=== PATIENT | male | born 1945 | race Caucasian/White ===

== ENCOUNTER → 2017-10-14 | Outpatient (CLI) | payer BC ==
--- NOTE | 2017-09-25 13:39 | MH ---
cc: [facility]List DATE OF ADMISSION: 10/14/2017 ADMISSION DIAGNOSIS Cloudy posterior capsule right eye. HISTORY OF PRESENT ILLNESS This 72-year-old white male is coming through [facility] for the purpose of a YAG laser posterior capsulotomy of the right eye. He is status post cataract surgery with intraocular lens implants in both eyes and has been doing well postoperatively but now notices a decrease in visual acuity and was found to have a cloudy posterior capsule in both eyes and elected to have a YAG laser posterior capsulotomy on the right eye at this time. 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 SURGICAL HISTORY 1. Includes the above-mentioned bilateral cataract surgeries. 2. He has had two ear surgeries in 1965. 3. Appendectomy in 1973. 4. Gallbladder surgery in 1999. DAILY MEDICATIONS 1. Aspirin 325 mg a day. 2. Ibuprofen p.r.n. 3. Multivitamins. ALLERGIES He has no known allergies. SOCIAL HISTORY Noncontributory. FAMILY HISTORY Ps positive for father with cataract. REVIEW OF SYSTEMS Noncontributory. PHYSICAL EXAMINATION On ocular exam the patient's best corrected visual acuity is 20/40 in each eye. Visual silva are full to confrontation testing. Extraocular muscle exam reveals full versions with orthophoria in the distance and exophoria at near. Pupils are 3 mm equal, round, and reactive to light without afferent defect. Anterior segment examination reveals a posterior chamber intraocular lens in place bilaterally with a cloudy posterior capsule in each eye. Intraocular pressure is 17 in each eye by applanation tonometry. Dilated fundus exam revealed sharp disks with cup-to-disk ratio of 0.3 bilaterally. There are drusen and retinal pigment epithelial changes in the macula of each eye. A posterior vitreous detachment is present bilaterally. There is cobblestone peripheral retinal degeneration inferiorly in the left eye. IMPRESSION 1. Cloudy posterior capsule both eyes. 2. Post posterior vitreous detachment both eyes. 3. Pseudophakia both eyes. 4. Early macular degeneration dry form both eyes. 5. Cobblestone peripheral retinal degeneration left eye. PLAN The plan is for YAG laser posterior capsulotomy of the right eye through [facility]. MD KATIE Hairston/SSB /1:08 PM /1:29 PM
[~2017-10-14] MED LIST: ASPI325T PO; FLUOROMETHOLONE 0.25% OPHT SUSP 5 ML BTL ONE; MOTR200T PO; PHENYLEPHRINE HCL 2.5% OPTH SOLN 2 ML BTL ONE; PROPARACAINE HCL 0.5% OPHT SOLN 15 ML BTL ONE; TAB-TAB PO; TROPICAMIDE 1% OPHT SOLN 15 ML BTL ONE
--- NOTE | 2017-10-14 12:38 | MP ---
cc: XIAO VIERA DATE OF SURGERY: October 14, 2017 PREOPERATIVE DIAGNOSIS: Cloudy posterior capsule right eye. POSTOPERATIVE DIAGNOSIS: Cloudy posterior capsule right eye. OPERATION: YAG laser posterior capsulotomy, right eye. SURGEON: Xiao Viera MD ANESTHESIA: Topical. COMPLICATIONS: None. INDICATIONS: See history and physical previously dictated. PROCEDURE: The patient arrived at [facility]. Blood pressure was 140/82, pulse 80, respirations 18. A drop of Alphagan P and Mydriacyl were instilled in the right eye. The patient was seated at the YAG laser. A drop of Alcaine was instilled in the right eye and a YAG laser posterior capsulotomy lens was placed on the anterior surface of the right cornea. YAG laser posterior capsulotomy was carried out utilizing 74 exposures of 1.5 millijoules. An adequate opening was seen following the procedure. A drop of Alphagan P was instilled topically. The patient was given a prescription for a topical steroid to be used four times per day and has an appointment for follow up on the first postoperative day in my office. The patient left the [facility] in satisfactory condition. Xiao Viera MD FAGOT HEATER/SSB /11:29 AM /12:18 PM .4
== END ==
LOC: PHSDC 10:04
PROVIDERS: ATTEND Ophthalmology
DX: H26.491 Other secondary cataract, right eye (principal); H35.3131 Nonexudative age-related macular degeneration, bilateral, early dry stage; H35.40 Unspecified peripheral retinal degeneration; Z96.1 Presence of intraocular lens

== ENCOUNTER → 2017-11-18 | Outpatient (CLI) | payer BC ==
--- NOTE | 2017-11-14 14:42 | MH ---
cc: XIAO BARRERA DATE OF ADMISSION: 11/18/2017 ADMISSION DIAGNOSIS Cloudy posterior capsule left eye. HISTORY OF PRESENT ILLNESS This 72-year-old white male is coming through [facility] for the purpose of a YAG laser posterior capsulotomy on the left eye. He is status post bilateral cataract surgery with intraocular lens implants and YAG laser posterior capsulotomy on the right eye and has done well and now is requesting to the YAG laser posterior capsulotomy for his left eye. PAST MEDICAL HISTORY The patient has a history of hearing loss. PAST SURGICAL HISTORY 1. Appendectomy. 2. Gallbladder surgery. 3. Left ear surgery in 1965. 4. The above-mentioned bilateral cataract surgery followed by YAG laser posterior capsulotomy in the right eye. DAILY MEDICATIONS 1. Aspirin. 2. Ibuprofen. 3. Multivitamins. ALLERGIES No known allergies. FAMILY HISTORY Positive for father with cataract. SOCIAL HISTORY Noncontributory. REVIEW OF SYSTEMS Noncontributory. PHYSICAL EXAMINATION On ocular exam the patient's best corrected visual acuity is 20/20 -3 in the right eye and is 20/40 in the left eye. Visual silva are full to confrontation testing. Extraocular muscle exam reveals full versions with orthophoria in the distance and exophoria at near. Pupils are 3 mm, equal, round, reactive, to light without afferent defect. Anterior segment examination reveals a posterior chamber intraocular lens implant bilaterally with a YAG laser posterior capsulotomy in the right eye and a cloudy posterior capsule in the left. Intraocular pressure is 13 in the right eye and 17 in the left by applanation tonometry. Dilated fundus exam revealed sharp disks with cup-to-disk ratio 0.3 bilaterally. There were drusen and retinal pigment epithelial changes in the macula of each eye. A posterior vitreous detachment is present bilaterally. There is cobblestone degeneration inferiorly in the left eye versus peripheral retinal degenerations. IMPRESSION 1. Cloudy posterior capsule left eye. 2. Pseudophakia both eyes. 3. Early macular degeneration, dry, both eyes. PLAN YAG laser posterior capsulotomy of the left eye through [facility]. MD KATIE Hairston/MACKENZIE /12:06 PM 2:38 PM
--- NOTE | 2017-11-19 12:45 | MP ---
cc: [facility] DATE OF SURGERY: 11/18/2017 PREOPERATIVE DIAGNOSIS: Cloudy posterior capsule left eye. POSTOPERATIVE DIAGNOSIS: Cloudy posterior capsule left eye. OPERATION: YAG laser posterior capsulotomy, left eye. SURGEON: Chauncey Viera MD ANESTHESIA: Topical. COMPLICATIONS: None. INDICATIONS: See history and physical previously dictated. PROCEDURE: The patient arrived at [facility]. Blood pressure was 136/79, pulse 79, respirations 16. A drop of Alphagan P and Mydriacyl were instilled in the left eye. The patient was seated at the YAG laser. A drop of Alcaine was instilled in the left eye and a YAG laser posterior capsulotomy lens was placed on the anterior surface of the left cornea. YAG laser posterior capsulotomy was carried out utilizing 90 exposures of 1.6 millijoules. An adequate opening was seen following the procedure. A drop of Alphagan P was instilled topically. The patient was given a prescription for a topical steroid to be used four times per day and has an appointment for follow up on the first postoperative day in my office. The patient left the [facility] in satisfactory condition. MD KATIE Hairston/ /12:32 PM /12:34 PM .8
== END ==
LOC: PHSDC 10:02
PROVIDERS: ATTEND Ophthalmology
DX: H26.492 Other secondary cataract, left eye (principal); H35.3131 Nonexudative age-related macular degeneration, bilateral, early dry stage; Z96.1 Presence of intraocular lens